=== PATIENT | male | born 1970 | race Caucasian/White ===

== ENCOUNTER 2018-08-11 16:10 | Emergency (ER) | payer MEDICAID ==
[2018-08-11] MEDS: LIDOCAINE 2%/EPI MPF (SDV) 20 ML VIAL INJ (16:40)
[2018-08-11] MEDS: IBUPROFEN 800 MG TAB PO (16:40)
[2018-08-11] MEDS: DIPHTH/TET/ACEL PERTUSS (ADULT) 0.5 ML VIAL IM* (16:40)
[2018-08-11] MEDS: HYDROCODONE/APAP (10/325) TAB PO (16:55)
[2018-08-11] MEDS: SOD CHLORIDE 0.9% 1,000 ML IV (21:58)
[2018-08-11] MEDS: ONDANSETRON 4 MG INJ IV (21:59)
[2018-08-11] MEDS: morphine 4 MG/ML VIAL IV (21:59)
[2018-08-11 22:00] LABS: ADD MAN DIFF? NO
[2018-08-11 22:22] LABS: WHITE BLOOD COUNT 13.4 10^3/ul (4.8-10.8)
[2018-08-11 22:22] LABS: BASOPHIL # 0.1 10^3/ul (0.0-0.1); BASOPHILS % 0.4 % (0.0-2.0); EOSINOPHILS % 0.2 % (0.0-7.0); HEMATOCRIT 36.7 % (42.0-52.0); HEMOGLOBIN 11.8 g/dl (14.0-18.0); LYMPHOCYTES # 1.3 10^3/ul (0.8-2.9); LYMPHOCYTES % 9.9 % (15.0-51.0); MEAN CORPUSCULAR HEMOGLOBIN 29.1 pg (29.0-33.0); MEAN CORPUSCULAR HGB CONC 32.2 g/dl (32.0-37.0); MEAN CORPUSCULAR VOLUME 90.4 fl (82.0-101.0); MEAN PLATELET VOLUME 11.3 fl (7.4-10.4); MONOCYTE # 1.1 10^3/ul (0.3-0.9); NEUTROPHIL # 10.9 10^3/ul (1.6-7.5); NEUTROPHILS % 81.1 % (39.0-77.0); PLATELET COUNT 199 10^3/UL (140-415); RED BLOOD COUNT 4.06 10^6/ul (4.70-6.10); RED CELL DISTRIBUTION WIDTH 12.7 % (11.5-14.5)
[2018-08-11 22:25] LABS: ANION GAP 4 (5-13); CARBON DIOXIDE 30 mmol/L (21-31); CHLORIDE 104 mmol/L (97-110); Estimated GFR 57 mL/min (>60); POTASSIUM 4.1 mmol/L (3.5-5.1); SODIUM 138 mmol/L (135-144)
[2018-08-11 22:26] LABS: BLOOD UREA NITROGEN 10 mg/dl (7-20); CALCIUM 8.8 mg/dl (8.4-10.2); CREATININE 1.34 mg/dl (0.61-1.24); GLUCOSE 150 mg/dl (70-220)
[2018-08-11 22:36] LABS: ADD UMIC NO; UR ASCORBIC ACID 20 mg/dL (NEGATIVE); UR BILIRUBIN (Dip) NEGATIVE (NEGATIVE); UR BLOOD (Dip) NEGATIVE (NEGATIVE); UR CLARITY SLIGHTLY CLOUDY (CLEAR); UR COLOR YELLOW (YELLOW); UR GLUCOSE (Dip) NEGATIVE (NEGATIVE); UR KETONES (Dip) 1+ mg/dL (NEGATIVE); UR LEUKOCYTE ESTERASE (Dip) NEGATIVE Leu/ul (NEGATIVE); UR MUCUS FEW /HPF (NONE SEEN); UR NITRITE (Dip) NEGATIVE (NEGATIVE); UR RBC 9 /HPF (0-5); UR SPECIFIC GRAVITY (Dip) 1.013 (1.003-1.030); UR TOTAL PROTEIN (Dip) NEGATIVE (NEGATIVE); UR UROBILINOGEN (Dip) NEGATIVE (NEGATIVE); UR WBC 3 /HPF (0-5)
== END 2018-08-12 00:04 | disposition short-term general hospital (02) ==
LOC: E/R 08-12 00:04
DX: S01.02XA Laceration with foreign body of scalp, initial encounter (principal); S37.092A Other injury of left kidney, initial encounter; V49.40XA Driver injured in collision with unspecified motor vehicles in traffic accident, initial encounter; Z23 Encounter for immunization
CPT/HCPCS: 12002; 36415; 70450; 71045; 72125; 73562-50; 74176; 80048; 81001; 81003; 85025; 86850; 86900; 86901; 90471; 90715; 96374; 96375; 99291-25